=== PATIENT | female | born 1980 ===

== ENCOUNTER 2018-04-02 10:57 | Emergency (ER) | payer OTHER ==
[2018-04-02 10:59] VITALS: BMI 27.9
[2018-04-02 11:20] VITALS: RESP 18; TEMP 98.3
--- NOTE | 2018-04-02 11:55 | ED PDOC ---
Arrival/HPI - History of Present Illness Narrative History of Present Illness (Text): 04/02/18 11:48 Pt is a 37 yo F with no significant pmhx who presents s/p fall 2/2 dizziness. Pt states that she was on the 3rd rung of a ladder at work when she suddenly became dizzy, felt herself spinning around the room, and lightheaded and fell off of the ladder. She states that she has never had symptoms like this before and that she had felt fine this AM and even while she was at work. She states that after the fall she fell back and hit her head against a wall behind her. She states that she didnt have any LOC, or syncope before or after the episode. She denies any numbness, tingling or weakness after the episode. She admits to 5/10 non- radiating pain to the L side of her L neck. She admits to midline tenderness upon palpation of her cervical spine. She denies fevers, chills, but admits to headaches. She also denies any chest pain, SOB, cough, palpitations, abdominal pain, dysuria, frequency or hematuria Pmhx: Denies Pshx: Denies Meds: Denies All: NKDA Social: Denies any tobacco use, Etoh use or illicit drug use Fam hx: Denies Time/Duration: Prior to Arrival Symptom Onset: Sudden Symptom Course: Improving Severity Level: 5 <Majo Taylor - Last Filed: 04/03/18 19:15> <Vladimir King - Last Filed: 04/04/18 19:13> <Arielle Cerda - Last Filed: 04/05/18 08:03> - General Chief Complaint: Trauma Time Seen by Provider: 04/02/18 11:18 Past Medical History - Provider Review Nursing Documentation Reviewed: Yes - Infectious Disease Hx of Infectious Diseases: None - Psychiatric Hx Substance Use: No - Anesthesia Hx Anesthesia: No <Majo Taylor - Last Filed: 04/03/18 19:15> Family/Social History - Physician Review Nursing Documentation Reviewed: Yes Family/Social History: No Known Family HX Smoking Status: Never Smoked Hx Alcohol Use: No Hx Substance Use: No <Majo Taylor - Last Filed: 04/03/18 19:15> Allergies/Home Meds <Majo Taylor - Last Filed: 04/03/18 19:15> <Vladimir King - Last Filed: 04/04/18 19:13> <Arielle Cerda - Last Filed: 04/05/18 08:03> Allergies/Adverse Reactions: Allergies No Known Allergies Allergy (Verified 04/02/18 10:59) Home Medications: Home Meds Medication Instructions Recorded Confirmed RX: No Known Home Med 04/02/18 04/02/18 Review of Systems - Physician Review All systems were reviewed & negative as marked: Yes - Review of Systems Constitutional: absent: Fatigue Respiratory: absent: SOB, Cough, Wheezing Cardiovascular: absent: Chest Pain, Palpitations Gastrointestinal: absent: Abdominal Pain, Nausea, Vomiting <Majo Taylor - Last Filed: 04/03/18 19:15> Physical Exam Vital Signs Reviewed: Yes Vital Signs Temp Pulse Resp BP Pulse Ox 04/02/18 10:57 98.3 F 82 18 122/75 98 Temperature: Afebrile Blood Pressure: Normal Pulse: Regular Respiratory Rate: Normal Appearance: Positive for: Well-Appearing, Non-Toxic, Comfortable Pain Distress: Mild Mental Status: Positive for: Alert and Oriented X 3 - Systems Exam Head: Present: Atraumatic, Normocephalic Pupils: Present: PERRL Extroacular Muscles: Present: EOMI Mouth: Present: Moist Mucous Membranes Neck: Present: MIDLINE TENDERNESS (upon palpation), Paraspinal Tenderness (worse L than R), Trachea Midline. No: Normal Range of Motion (R sidebending ROM is limited 2/2 pain) Respiratory/Chest: Present: Clear to Auscultation, Good Air Exchange. No: Respiratory Distress, Accessory Muscle Use, Wheezes Cardiovascular: Present: Regular Rate and Rhythm, Normal S1, S2. No: Murmurs, Rub, Gallop Abdomen: Present: Normal Bowel Sounds. No: Tenderness, Distention, Peritoneal Signs, Rebound, Guarding Lower Extremity: Present: Normal Inspection. No: Edema, CALF TENDERNESS Neurological: Present: GCS=15, Speech Normal Skin: Present: Warm, Dry, Normal Color. No: Rashes Psychiatric: Present: Alert, Oriented x 3, Normal Insight, Normal Concentration <Majo Taylor - Last Filed: 04/03/18 19:15> Vital Signs Temp Pulse Resp BP Pulse Ox 04/02/18 13:50 85 18 126/72 99 04/02/18 10:57 98.3 F 82 18 122/75 98 <Vernon Kingcharles Cesar - Last Filed: 04/04/18 19:13> Vital Signs Temp Pulse Resp BP Pulse Ox 04/02/18 10:57 98.3 F 82 18 122/75 98 - Systems Exam Neck: No: MIDLINE TENDERNESS <Arielle Cerda - Last Filed: 04/05/18 08:03> Medical Decision Making ED Course and Treatment: 04/02/18 18:21 Pt is 37 yo F with pmhx detailed above who presents s/p fall of ladder 2/2 dizziness. She now readily admits to a urine test being (+) - CBC - CMP - EKG - BHCG quantitative - RAD Interpretation Radiology Orders: 04/02/18 11:46 CERVICAL SPINE W/O CONTRAST [CT] Stat HEAD W/O CONTRAST [CT] Stat <Majo Taylor - Last Filed: 04/03/18 19:15> ED Course and Treatment: 04/03/18 13:30 I was not involved with this case and am only signing this chart because it will not come off my [facility] list. Thank you. - Lab Interpretations Lab Results: 04/02/18 12:20 04/02/18 12:20 Lab Results 04/02/18 12:31: Urine HCG, Qual Positive 04/02/18 12:20: Beta HCG, Quant 1260.10 H 04/02/18 12:20: Sodium 139, Potassium 3.7, Chloride 103, Carbon Dioxide 25, Anion Gap 15, BUN 9, Creatinine 0.6 L, Est GFR ( Amer) > 60, Est GFR (Non-Af Amer) > 60, Random Glucose 96, Calcium 9.6, Magnesium 2.0, Total Bilirubin 0.4, AST 26, ALT 22, Alkaline Phosphatase 54, Total Protein 8.0, Albumin 4.6, Globulin 3.4, Albumin/Globulin Ratio 1.3 04/02/18 12:20: WBC 8.4, RBC 4.24, Hgb 12.2, Hct 35.6 L, MCV 84.0, MCH 28.8, MCHC 34.3, RDW 12.9, Plt Count 234, MPV 10.7, Gran % 62.8, Lymph % (Auto) 30.7, Harris % (Auto) 5.4, Eos % (Auto) 0.7 L, Baso % (Auto) 0.4, Gran # 5.28, Lymph # (Auto) 2.6, Harris # (Auto) 0.5, Eos # (Auto) 0.1, Baso # (Auto) 0.03 04/02/18 11:13: POC Glucose (mg/dL) 118 H - Medication Orders Current Medication Orders: Discontinued Medications Acetaminophen (Tylenol 325mg Tab) 650 mg PO ONCE STA Stop: 04/02/18 13:28 Last Admin: 04/02/18 13:54 Dose: Not Given Non-Admin Reason: Patient Refused <Vladimir King - Last Filed: 04/04/18 19:13> ED Course and Treatment: 04/02/18 18:26 Patient is a 37 year old female patient presenting to the emergency department s/p fall In agreement with resident note, which includes further HPI details. Patient was seen and evaluated with resident, came up with plan and treatment together. I interviewed patient with ELKE Christie serving as vessel slag worker with patient permission. Patient on exam denies loss of conciousness. On my exam, there is NO midline cervical pain. There is full range of motion of neck, shoulder and lower extremities. On exam there is left sided PARASPINAL tenderness and muscle spasm. No shoulder deformity. She has mild posterior headache and no associated neuro deficits, no loss of consiousness. URINE is positive. Patient states that she is 5 days late on period and that she has had a positive test at home. Risks of imaging studies in reviewed with patient, she does not wish to have xrays or ct scans after conversation reviewing risks/benefits of imaging studies as well as indications. Serial neuro exams performed in ED, patient observed with NO nausea, no headache on re-evaluation, no neuro deficits. She has no abdominal pain or vaginal bleeding. Advised with mortgage accounting clerk need for follow-up with dry mixer and PMD. Tylenol as need ed for neck pain. Advised return to ED for any new or worsening or persistence of any symptoms. Neuro exam is intact. Normal speech, and NORMAL GAIT. Not orhtostatic. - Lab Interpretations Lab Results: Lab Results 04/02/18 12:31: Urine HCG, Qual Positive - Medication Orders Current Medication Orders: Discontinued Medications Acetaminophen (Tylenol 325mg Tab) 650 mg PO ONCE STA Stop: 04/02/18 13:28 <ZaidaArielle - Last Filed: 04/05/18 08:03> - PA / COKE BURNER / Resident Statement / has reviewed & agrees with the documentation as recorded. MD/DO has examined the patient and agrees with the treatment plan. - Scribe Statement The provider has reviewed the documentation as recorded by the Esauibbriana Rene All medical record entries made by the Esauibbriana were at my direction and personally dictated by me. I have reviewed the chart and agree that the record accurately reflects my personal performance of the history, physical exam, medical decision making, and the department course for this patient. I have also personally directed, reviewed, and agree with the discharge instructions and disposition. <Arielle Cerda - Last Filed: 04/05/18 08:03> Disposition/Present on Arrival - Present on Arrival Any Indicators Present on Arrival: No History of DVT/PE: No History of Uncontrolled Diabetes: No Urinary Catheter: No History of Decub. Ulcer: No History Surgical Site Infection Following: None - Disposition Have Diagnosis and Disposition been Completed?: Yes Patient Plan: Discharge <Majo Taylor - Last Filed: 04/03/18 19:15> - Disposition Disposition Time: 13:50 <Vladimir King - Last Filed: 04/04/18 19:13> - Present on Arrival Any Indicators Present on Arrival: No - Disposition Have Diagnosis and Disposition been Completed?: Yes Disposition Time: 13:38 Patient Plan: Discharge <ZaidaMarcuscarla - Last Filed: 04/05/18 08:03> - Disposition Diagnosis: Neck sprain, Neck pain, Disposition: HOME/ ROUTINE Condition: GOOD Discharge Instructions (ExitCare): Cervical Muscle Strain (DC), Symptoms Print Language: AZERI Additional Instructions: Your test today was positive. For any abdominal pain, any vaginal bleeding, any headaches, any chest pain or shortness of breath, any numbness or tingling, any persistent or worsening pain in your neck or shoulder, get rechecked. Follow-up with an obstretician/resaw feeder and your primary care physician in 1-2 days. You may take Tylenol as needed for pain. [facility]errals[facility] [Outside] - Follow up with primary [facility] [Outside] - Follow up with primary Roya Villareal MD [Medical Doctor] - Follow up with primary Forms: [employer] (Faroese)
[2018-04-02 13:40] LABS: BASO # 0.03 K/mm3 (0.0-2.0); BASO % 0.4 % (0.0-3.0); EOS # 0.1 (0.0-0.7); EOS % 0.7 % (1.5-5.0); GRAN # 5.28 (1.4-6.5); GRAN % 62.8 % (50.0-68.0); HEMOGLOBIN 12.2 g/dL (12.0-16.0); LYMPH # 2.6 (1.2-3.4); LYMPH % 30.7 % (22.0-35.0); MEAN CORPUSCULAR HEMOGLOBIN 28.8 pg (25.0-35.0); MEAN CORPUSCULAR HGB CONC 34.3 g/dl (31.0-37.0); MEAN PLATELET VOLUME 10.7 fl (7.0-11.0); MONO # 0.5 (0.1-0.6); MONO % 5.4 % (1.0-6.0); RBC 4.24 10^6/uL (3.5-6.1); RED CELL DISTRIBUTION WIDTH 12.9 % (11.5-14.5); WHITE BLOOD COUNT 8.4 10^3/ul (4.5-11.0)
[2018-04-02 13:46] LABS: ALB/GLOB RATIO 1.3 (1.1-1.8); ALBUMIN 4.6 g/dL (3.0-4.8); ALT/SGPT 22 U/L (7-56); AST/SGOT 26 U/L (14-36); BLOOD UREA NITROGEN 9 mg/dL (7-21); CALCIUM 9.6 mg/dL (8.4-10.5); GFR NON-AFRICAN AMERICAN > 60
[2018-04-02 13:50] VITALS: BP 126/72; PULSE 85; O2SAT 99
--- NOTE | 2018-04-02 23:35 | CARD ---
APPROVED REPORT Date of service: 04/02/2018 EKG Measurement Heart [id number] <Conclusion> Normal sinus rhythm Normal ECG
== END 2018-04-02 14:05 | disposition home or self-care (01) ==
LOC: ED 10:57
DX: S13.9XXA Sprain of joints and ligaments of unspecified parts of neck, initial encounter (principal); O26.899 Other specified pregnancy related conditions, unspecified trimester; W11.XXXA Fall on and from ladder, initial encounter; Y99.0 Civilian activity done for income or pay